=== PATIENT | male | born 1990 | race Caucasian/White ===

== ENCOUNTER 2021-12-07 10:12 | Inpatient (IN) | payer OTHER ==
[2021-12-07] VITALS (10 sets, daily range): BP systolic 99–128; BP diastolic 51–78
[~2021-12-07] VITALS: Ht 182.9 cm; Wt 88.0 kg
--- NOTE | 2021-12-07 11:25 | PDOC2 ---
CONSULT Date of Consult Date of Consult DATE: 12/07/21 TIME: : Reason for Consult Reason for Consult: Acute appendicitis Referring Physician Referring Physician: Christian Identification/Chief Complaint Chief Complaint Abdominal pain Source Source: Chart review, Patient History of Present Illness Reason for Visit: 31-year-old male developed right lower quadrant abdominal pain yesterday about 10 PM was up most of the night pain became worse this morning is why came to the emergency department. The emergency department found to have a leukocytosis and CT scan showing signs consistent with acute appendicitis without abscess or rupture Past Medical History Cardiovascular: No pertinent hx Pulmonary: No pertinent hx GI: No pertinent hx Heme/Onc: No pertinent hx Hepatobiliary: No pertinent hx Psych: No pertinent hx Rheumatologic: No pertinent hx Infectious disease: No pertinent hx ENT: No pertinent hx Renal/: No pertinent hx Endocrine: No pertinent hx Dermatology: No pertinent hx Past Surgical History Past Surgical History: Tonsillectomy, Other ([place] teeth extraction) Family History Family History: No Significant Social History <1 pack per day ALCOHOL: occassional Drugs: None Lives: with Family Current Medications Current Medications Current Medications Fentanyl Citrate (Fentanyl 2ml Vial) 25 mcg PRN Q5MIN PRN IVP MILD PAIN 1-3; S tart 12/07/21 at 11:30; Stop 12/08/21 at 11:29; Status UNV Fentanyl Citrate (Fentanyl 2ml Vial) 50 mcg PRN Q5MIN PRN IVP MODERATE PAIN 4- 6; Start 12/07/21 at 11:30; Stop 12/08/21 at 11:29; Status UNV Morphine Sulfate (Morphine Sulfate) 1 mg PRN Q10MIN PRN IVP SEVERE PAIN 7-10; Start 12/07/21 at 11:30; Stop 12/08/21 at 11:29; Status UNV Ringer's Solution 1,000 ml @ 30 mls/hr Q24H IV ; Start 12/07/21 at 11:30; Stop 12/07/21 at 23:29; Status UNV Hydromorphone HCl (Dilaudid) 0.5 mg PRN Q10MIN PRN IVP SEVERE PAIN 7-10, 2nd CHOICE; Start 12/07/21 at 11:30; Stop 12/08/21 at 11:29; Status UNV Prochlorperazine Edisylate (Compazine) 5 mg PACU PRN PRN IVP NAUSEA, MRX1; Start 12/07/21 at 11:30; Stop 12/08/21 at 11:29; Status UNV ROS General: No: Chills, Night Sweats, Fatigue, Malaise, Appetite, Other PSYCHOLOGICAL ROS: No: Anxiety, Behavioral Disorder, Concentration difficultie, Decreased libido, Depression, Disorientation, Hallucinations, Hostility, Irrit ablity, Memory difficulties, Mood Swings, Obsessive thoughts, Physical abuse, Sexual abuse, Sleep disturbances, Suicidal ideation, Other Eyes: No Blurry vision, No Decreased vision, No Double vision, No Dry eyes, No Excessive tearing, No Eye Pain, No Itchy Eyes, No Loss of vision, No Photophobia, No Scotomata, No Uses contacts, No Uses glasses, No Other HEENT: No: Heacaches, Visual Changes, Hearing change, Nasal congestion, Nasal discharge, Oral lesions, Sinus pain, Sore Throat, Epistaxis, Sneezing, Snoring, Tinnitus, Vertigo, Vocal changes, Other ALLERGY AND IMMUNOLOGY: No: Hives, Insect Bite Sensitivity, Itchy/Watery Eyes, Nasal Congestion, Post Nasal Drip, Seasonal Allergies, Other Hematological and Lymphatic: No: Bleeding Problems, Blood Clots, Blood Transfusions, Brusing, Night Sweats, Pallor, Swollen Lymph Nodes, Other ENDOCRINE: No: Breast Changes, Galactorrhea, Hair Pattern Changes, Hot Flashes, Malaise/lethargy, Mood Swings, Palpitations, Polydipsia/polyuria, Skin Changes, Temperature Intolerance, Unexpected Weight Changes, Other Breast: No New/Changing Breast Lumps, No Nipple changes, No Nipple discharge, No Other Respiratory: No: Cough, Hemoptysis, Orthopnea, Pleuritic Pain, Shortness of breath, SOB with excertion, Sputum Changes, Stridor, Tachypnea, Wheezing, Other Cardiovascular: No Chest Pain, No Palpitations, No Orthopnea, No Paroxysmal Noc. Dyspnea, No Edema, No Lt Headedness, No Other Gastrointestinal: Yes Nausea, Yes Abdominal Pain Genitourinary: No Dysuria, No Frequency, No Incontinence, No Hematuria, No Re tention, No Discharge, No Urgency, No Pain, No Flank Pain, No Other, No , No , No , No , No , No , No Musculoskeletal: No Gait Disturbance, No Joint Pain, No Joint Stiffness, No Joint Swelling, No Muscle Pain, No Muscular Weakness, No Pain In:, No Swelling In:, No Other Neurological: No Behavorial Changes, No Bowel/Bladder ControlChng, No Confusion, No Dizziness, No Gait Disturbance, No Headaches, No Impaired Coord/balance, No Memory Loss, No Numbness/Tingling, No Seizures, No Speech Problems, No Tremors, No Visual Changes, No Weakness, No Other Skin: No Dry Skin, No Eczema, No Hair Changes, No Lumps, No Mole Changes, No Mottling, No Nail Changes, No Pruritus, No Rash, No Skin Lesion Changes, No Other, No Acne Physical Exam General: Alert, Oriented X3, Cooperative, mild distress HEENT: Atraumatic, PERRLA, EOMI Lungs: Clear to auscultation, Normal air movement Heart: Regular rate, No murmurs Abdomen: Normal bowel sounds, Soft, Other (Tender to palpation right lower quadrant no peritoneal signs) Extremities: No edema Skin: No significant lesion Neuro: Normal speech Psych/Mental Status: Mental status NL Assessment/Plan Assessment/Plan Acute appendicitis plan laparoscopic appendectomy DEMI MATUTE MD Dec 07, 2021 11:25
[2021-12-07] MEDS ORDERED: fentaNYL PF VIAL 100 MCG/2 ML VIAL IVP PRN ×2 (11:30)
[2021-12-07] MEDS ORDERED: HYDROmorphone 2 MG/ML INJ. IVP PRN (11:30)
[2021-12-07] MEDS ORDERED: PROCHLORPERAZINE 10 MG/2 ML VIAL. IVP PRN (11:30)
[2021-12-07] MEDS ORDERED: IV RINGERS,LACTATED 1000ML 1,000 ML IV SCH (11:30)
[2021-12-07] MEDS ORDERED: ROCURONIUM 50 MG/5 ML VIAL. ONE (11:32)
[2021-12-07] MEDS ORDERED: fentaNYL PF VIAL 100 MCG/2 ML VIAL ONE ×2 (11:32→12:47)
[2021-12-07] MEDS ORDERED: GLYCOPYRROLATE 1 MG/5 ML VIAL. ONE (11:33)
[2021-12-07] MEDS ORDERED: NEOSTIGMINE METHYLSULFATE 5 MG/5 ML SYRINGE. ONE (11:33)
[2021-12-07] MEDS ORDERED: SEVOFLURANE 61 TO 120 MINUTES. IH ONE (11:34)
[2021-12-07] MEDS ORDERED: BUPIVACAINE-EPI 0.25%-1:200000 MPF 30 ML VIAL. ONE (11:49)
[2021-12-07] MEDS: PIPERACILLIN/TAZOBACTAM 3.375 GM in IV NORMAL SALINE 50ML 50 ML IV SCH ×2 (12:05→18:11)
[2021-12-07] MEDS ORDERED: PROCHLORPERAZINE 10 MG/2 ML VIAL. ONE (12:46)
[2021-12-07] MEDS ORDERED: KETOROLAC 30 MG/ML VIAL. ONE (12:46)
[2021-12-07] MEDS ORDERED: MORPHINE SULFATE 2 MG/ML INJ. ONE (12:47)
--- NOTE | 2021-12-07 12:47 | PDOC4 ---
Operative Note Operative Note Date: December 072021 at 12:45 PM Preoperative diagnosis: Acute appendicitis Postoperative diagnosis: Same Procedure: Laparoscopic appendectomy Surgeon: Ernesto Alvaradotherapy administrative assistant none Specimen: Appendix Dictation: Patient is a 31-year-old male was mated to the hospital with right lower quadrant abdominal pain and a CT scan showing signs consistent with acute appendicitis. Procedure of laparoscopic appendectomy was explained to the patient detail risk benefits were also discussed including bleeding infection injury to intra-abdominal contents possible necessitating further open operations alternatives to this procedure also discussed with the patient who seemed to understand and gave a verbal written consent to have procedure performed. Patient was taken to the OR placed in the supine position general anesthesia was initiated once patient was sleeping in bed his abdomen was prepped and draped usual sterile fashion using ChloraPrep. Area just above the umbilicus was injected quarter percent Marcaine with epinephrine incision was made with a blade scalpel and a varies needle was placed within the abdomen creating pneumoperitoneum once this was complete 12 mm port was placed and a 5 mm camera was placed within the abdomen was noted the appendix was retrocecal and inflamed. 5 mm ports placed low in the midline under direct visualization and a second 5 mm port was placed in the right midabdomen under direct visualization. The gallbladder is grasped retracted towards the anterior abdominal wall blunt dissection was used to freed up from its adherence to the lateral abdominal wall and cecum a window was propagated at the base the appendix through the mesoappendix with a [place] dissector this allowed for an Endo DONNELL stapler to staple and transect the base of the appendix a second load was used to staple and transect the mesoappendix. There was a little bit of bleeding along the staple line a 10 mm clip was applied which stopped the bleeding the appendix was placed in Endo Catch bag and roof the umbilicus right lower quadrant pelvis irrigated and suctioned dry hemostasis deemed be appropriate the pneumoperitoneum was reduced all ports removed the fascial defect at the umbilicus closed with [id number] 0 Vicryl suture and the skin was reapproximated all port sites for subcuticular Monocryl Mastisol Steri- Strips and island dressings were applied. Patient was awakened and extubated in the operating room taken recovery in stable condition all sponge instrument needle counts listed as correct estimated blood loss 20 mL DEMI MATUTE MD Dec 07, 2021 12:47
[2021-12-07] MEDS ORDERED: oxyCODONE/APAP 5/325 1 TAB TABLET PO PRN ×2 (13:00)
[2021-12-07] MEDS: KETOROLAC 15 MG/ML VIAL. IVP SCH ×2 (13:00→19:49)
[2021-12-07] MEDS ORDERED: KETOROLAC 30 MG/ML VIAL. IVP ONE (13:15)
[2021-12-07] MEDS: MORPHINE SULFATE 2 MG/ML INJ. IVP PRN ×2 (13:29→13:39)
--- NOTE | 2021-12-07 13:57 | SSS ---
DATE OF SERVICE: 12/07/2021 ADMIT DATE: 12/07/2021 SHORT STAY SUMMARY CHIEF COMPLAINT: Appendicitis. 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 He presented to [facility] with abdominal pain. It woke him up at 10:00 last night. They did a CAT scan there which showed appendicitis. He has now been transferred to our facility. He just underwent surgery. I am examining him in the OR. PAST MEDICAL HISTORY: Benign. ALLERGIES: None. FAMILY HISTORY: Diabetes. SOCIAL HISTORY: He does not drink, smoke or take drugs. He works as a police. MEDICATIONS: Reviewed. Please refer to the MRAD. REVIEW OF SYSTEMS: GENERAL: No history of weight change, weakness or fevers. SKIN: No bruising, hair changes or rashes. EYES: No blurred, double or loss of vision. NOSE AND THROAT: No history of nosebleeds, hoarseness or sore throat. HEART: No history of palpitations, chest pain or shortness of breath on exertion. LUNGS: Denies cough, hemoptysis, wheezing or shortness of breath. GASTROINTESTINAL: He complains of abdominal pain. GENITOURINARY: No history of frequency, urgency, hesitancy or nocturia. NEUROLOGIC: Denies history of numbness, tingling, tremor or weakness. PSYCHIATRIC: No history of panic, anxiety or depression. ENDOCRINE: No history of heat or cold intolerance, polyuria or polydipsia. EXTREMITIES: Denies muscle weakness, joint pain, pain on walking or stiffness. PHYSICAL EXAMINATION: VITALS: Within normal limits and are stable. GENERAL: No apparent distress. Alert and oriented. HEENT: Normal cephalic atraumatic, external auditory canals are patent. Eyes: Extraocular muscles are intact, pupils are equally round and reactive to light and accommodation. MUSCULOSKELETAL: Well developed, well nourished, good range of motion. ENDOCRINE: No thyromegaly was palpated. LYMPHATICS: No cervical chain or axillary nodes were noted. HEMATOPOIETIC: No bruising. NECK: Supple, no JVD, no thyromegaly was noted. LUNGS: Clear to auscultation in all lung cohen without rhonchi or wheezing. HEART: RRR, S1, S2 present. Peripheral pulses intact, no obvious murmurs were noted. ABDOMEN: He has 3 clean, dry, intact trocar sites. EXTREMITIES: Without any cyanosis, clubbing, or edema. Pedal pulses intact, Homans sign is negative. NEUROLOGIC: Normal speech, normal tone. A and O x 3, moves all extremities, no obvious focal deficits. PSYCHIATRIC: Normal affect, normal mood. Stable. SKIN: No ulcerations or rashes, good skin turgor, no jaundice. VASCULAR: Good capillary refill, neurovascular bundle appears to be intact. ASSESSMENT AND PLAN: Postoperative laparoscopic appendectomy. Clinically, he is doing well. We will go ahead and admit to the medical monitored floor. Hope to start clear liquid diet and advance his diet as tolerated. P.r.n., pain meds, wound care, home meds. Deep venous thrombosis prophylaxis. Full code. Hope to discharge tomorrow if stable. RAHEL/CLAUDIO DR: Gm TID: [id number]
--- NOTE | 2021-12-07 14:00 | NUR ---
pt returned from surgery, report received from Zahraa RN, pt settled and frequent vitals initiated. Pt reports pain at a 4/10 and refuses any pain med at this time. pt resting, will continue to monitor. Toradol scheduled at 1300 held- toradol 30mg given by Zahraa in pacu at 1315.
[2021-12-08] MEDS: KETOROLAC 15 MG/ML VIAL. IVP SCH ×2 (00:36→06:20)
[2021-12-08] MEDS: PIPERACILLIN/TAZOBACTAM 3.375 GM in IV NORMAL SALINE 50ML 50 ML IV SCH ×3 (00:36→11:31)
[2021-12-08 03:00] VITALS: BP 103/50
[2021-12-08 07:28] LABS: BASO % 0 % (0-3); EOS % 0 % (0-3); HEMATOCRIT 41.2 % (39.0-53.0); HEMOGLOBIN 14.7 g/dL (13.0-17.5); LYMPH # 1.5 x10^3/uL (1.0-4.8); LYMPH % 14 % (24-48); MEAN CORPUSCULAR HEMOGLOBIN 33 pg (25-35); MEAN CORPUSCULAR HGB CONC 36 g/dL (31-37); MEAN CORPUSCULAR VOLUME 92 fL (79-100); MONO # 0.9 x10^3/uL (0.0-1.1); MONO % 8 % (0-9); NEUT # 8.4 x10^3/uL (1.8-7.7); NEUT % 78 % (31-73); PLATELET COUNT 224 x10^3/uL (140-400); RED BLOOD COUNT 4.48 x10^6/uL (4.30-5.70); RED CELL DISTRIBUTION WIDTH 12.3 % (11.5-14.5); WHITE BLOOD COUNT 10.8 x10^3/uL (4.0-11.0)
[2021-12-08 07:48] VITALS: BP 106/66
--- NOTE | 2021-12-08 10:22 | PDOC ---
ALEJANDRA VALDEZ [employer] 12/08/21 1022: SURGICAL PROGRESS NOTE DATE: 12/08/21 TIME: 10:19 Subjective sore, overall improved no nausea Vital Signs Vital Signs Date Time Temp Pulse Resp B/P (MAP) Pulse Ox O2 Delivery O2 Flow Rate FiO2 12/08/21 07:48 98.1 80 14 106/66 (79) 97 Room Air 98.1 12/07/21 13:10 10.0 I&O Intake and Output 12/08/21 07:00 Intake Total 850 ml Output Total 10 ml Balance 840 ml Intake Oral 700 ml IV Total 150 ml Output Estimated Blood Loss 10 ml # Voids 3 General: Alert, Oriented X3, Cooperative Abdomen: Soft, Other (lap dressings dry) Labs Laboratory Tests Test 12/08/21 07:10 White Blood Count 10.8 x10^3/uL (4.0-11.0) Red Blood Count 4.48 x10^6/uL (4.30-5.70) Hemoglobin 14.7 g/dL (13.0-17.5) Hematocrit 41.2 % (39.0-53.0) Mean Corpuscular Volume 92 fL (79-100) Mean Corpuscular Hemoglobin 33 pg (25-35) Mean Corpuscular Hemoglobin Concent 36 g/dL (31-37) Red Cell Distribution Width 12.3 % (11.5-14.5) Platelet Count 224 x10^3/uL (140-400) Neutrophils (%) (Auto) 78 % (31-73) Lymphocytes (%) (Auto) 14 % (24-48) Monocytes (%) (Auto) 8 % (0-9) Eosinophils (%) (Auto) 0 % (0-3) Basophils (%) (Auto) 0 % (0-3) Neutrophils # (Auto) 8.4 x10^3/uL (1.8-7.7) Lymphocytes # (Auto) 1.5 x10^3/uL (1.0-4.8) Monocytes # (Auto) 0.9 x10^3/uL (0.0-1.1) Eosinophils # (Auto) 0.0 x10^3/uL (0.0-0.7) Basophils # (Auto) 0.0 x10^3/uL (0.0-0.2) Laboratory Tests Test 12/08/21 07:10 White Blood Count 10.8 x10^3/uL (4.0-11.0) Red Blood Count 4.48 x10^6/uL (4.30-5.70) Hemoglobin 14.7 g/dL (13.0-17.5) Hematocrit 41.2 % (39.0-53.0) Mean Corpuscular Volume 92 fL (79-100) Mean Corpuscular Hemoglobin 33 pg (25-35) Mean Corpuscular Hemoglobin Concent 36 g/dL (31-37) Red Cell Distribution Width 12.3 % (11.5-14.5) Platelet Count 224 x10^3/uL (140-400) Neutrophils (%) (Auto) 78 % (31-73) Lymphocytes (%) (Auto) 14 % (24-48) Monocytes (%) (Auto) 8 % (0-9) Eosinophils (%) (Auto) 0 % (0-3) Basophils (%) (Auto) 0 % (0-3) Neutrophils # (Auto) 8.4 x10^3/uL (1.8-7.7) Lymphocytes # (Auto) 1.5 x10^3/uL (1.0-4.8) Monocytes # (Auto) 0.9 x10^3/uL (0.0-1.1) Eosinophils # (Auto) 0.0 x10^3/uL (0.0-0.7) Basophils # (Auto) 0.0 x10^3/uL (0.0-0.2) Assessment/Plan s/p appy ok to [place] home Justicifation of Admission Dx: Justifications for Admission: Justification of Admission Dx: Yes Comments: appendicitis DEMI MATUTE MD 12/08/21 1039: SURGICAL PROGRESS NOTE Assessment/Plan Agree with Caesar's assessment and plan ALEJANDRA VALDEZ APRN Dec 08, 2021 10:22 DEMI MATUTE MD Dec 08, 2021 10:39
--- NOTE | 2021-12-08 10:36 | NUR ---
SW following. Discussed with RN, discharge order for home with self care. RN advised no SW needs.
[2021-12-08] MEDS ORDERED: OXYC1TAB15 PO (10:39)
--- NOTE | 2021-12-08 10:42 | PDOC3 ---
[facility]-Discharge Summary Date of Admission: Date of Admission: Dec 07, 2021 Date of Discharge: Date of Discharge: Dec 08, 2021 Admission Diagnosis: Admitting Diagnosis: appendicitis Consults: Consults: Surgery Hospital Course: Hospital Course: Postoperative laparoscopic appendectomy. Clinically, he is doing well. We will go ahead and admit to the medical monitored floor. Hope to start clear liquid diet and advance his diet as tolerated. P.r.n., pain meds, wound care, home meds. Deep venous thrombosis prophylaxis. Full code. Hope to discharge tomorrow if stable. 12/08 Patient evaluated examined at bedside this morning doing well other than a bit of soreness in his incision areas. Okay for discharge home today. Great 30 minutes spent on discharge. Disposition: Disposition/Orders: D/C to Home Activity: Activity: Resume previous activity Medications: Home Meds Active Scripts Oxycodone/Apap 5-325 (PERCOCET 5-325 MG TABLET ) 1 Each Tablet, 1 TAB PO PRN Q4HRS PRN for moderate pain for 10 Days, #20 TAB Prov:NO AUGUSTINE MD 12/08/21 Scheduled PRN Oxycodone/Apap 5-325 (Percocet 5-325 Mg Tablet ), 1 TAB PO PRN Q4HRS PRN for moderate pain Justicifation of Admission Dx: Justifications for Admission: Justification of Admission Dx: Yes NO AUGUSTINE MD Dec 08, 2021 10:42
[2021-12-08 11:00] VITALS: BP 114/70
--- NOTE | 2021-12-09 15:08 | PATHOLOGY ---
[facility] Accession Number: [id number] . 01 Material submitted: . appendix - APPENDIX . 01 Clinical history: . LAPAROSCOPIC APPENDECTOMY . 02 Diagnosis: Appendix, laparoscopic appendectomy: - Acute appendicitis with serosal exudate. ([facility]:kenny; 12/09/2021) [facility] 12/09/2021 1430 Local . 02 Comment: There is no evidence of rupture. ([facility]:kenny; 12/09/2021) . 02 Electronically signed: . Eric Blankenship MD, Pathologist NPI- [id number] . 01 Gross description: . Fixative: Formalin Labeled: Appendix Appendix length: 8.6 cm Appendix diameter: 1.0 cm Mesoappendix: 2.5 cm Proximal margin: Stapled Serosa: Barker-brown and smooth with a mild amount of fibrinous exudate Cut surface: Dilated Luminal diameter: Up to 0.6 cm Perforation: Not identified Lesions/abnormalities: None identified . Proximal margin and bisected tip in cassette A1. Additional customer assistance representative cross-sections in cassette A2-A3. ([facility]; 12/08/2021) NRI/NRI 12/08/2021 1618 Local . 02 Pathologist provided ICD-10: K35.80 . 02 CPT . 737561 Specimen Comment: A courtesy copy of this report has been sent to [phone], [phone] Specimen Comment: [id number] Specimen Comment: Report sent to / DR SWANN Performed at: 01 [facility] [address], [place], [place] [id number] MD Dinesh Pettit MD Phone: [phone] Performed at: 02 [facility] [address] [place], [place] [id number] MD Eric Blankenship MD Phone: [phone]
== END 2021-12-08 13:20 | disposition home or self-care (01) | DRG 343 ==
LOC: 4 NORTH 10:41
PROVIDERS: ADMIT Internal Medicine; ATTEND Internal Medicine
PROC: 0DTJ4ZZ Resection of Appendix, Percutaneous Endoscopic Approach (ICD-10-PCS; principal; 2021-12-07 11:30)
DX: K35.80 Unspecified acute appendicitis (principal); Z83.3 Family history of diabetes mellitus
CPT/HCPCS: 36415; 85025; A4314; A4930; J0780; J1885; J2270; J2543; J2710; J3010; J3490; J7120; G0378